=== PATIENT | female | born 2005 | race Caucasian/White ===

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

== ENCOUNTER 2025-06-26 07:01 | Outpatient (CLI) | payer BC, OTHER, SELFPAY ==
[2025-06-26] VITALS (11 sets, daily range): BP systolic 103–109; BP diastolic 64–71; PULSE 79–100; O2SAT 98–99; BMI 27.8
[2025-06-26 07:39] LABS: Hematocrit 31.6 % (37.0-47.0); Hemoglobin 10.4 g/dL (12.0-15.0); Immature Granulocyte Percent A 0.5 % (0-0.5); Lymphocytes Absolute Auto 1.66 K/mm3 (0.9-3.2); Mean Corpuscular HGB Conc 32.9 g/dl (32-36); Mean Corpuscular Hemoglobin 28.0 pg (26-34); Mean Corpuscular Volume 85.2 fl (80-100); Nucleated Red Blood Cells Absolute Auto 0.000 K/mm3 (0.0-0.012); Nucleated Red Blood Cells Perc 0.0 % (0.0-0.2); Platelet Count Result 318 k/mm3 (150-375); Red Blood Count 3.71 M/mm3 (4.2-5.4); White Blood Count 11.1 K/mm3 (4.5-10.0)
[2025-06-26 07:44] LABS: Add Urine Microscopic? YES; Appearance Urine Cloudy (Clear); Glucose Urine UA Negative (Negative); Leukocyte Esterase Ur 2+ LEU/UL (Negative); Nitrate Urine Negative (Negative); Non Pathogenic Casts 0-2; Specific Grav Ur 1.017 (1.001-1.035)
[2025-06-26] MEDS: PANTOPRAZOLE 40 MG TABLET PO (07:58)
[2025-06-26 08:05] LABS: Alanine Aminotransferase 19 U/L (6-35); Albumin Level 3.5 g/dL (3.5-5.1); Alkaline Phosphatase 87 U/L (38-126); Anion Gap 3 mmol/L (4-12); Aspartate Amino Transferase 28 U/L (14-36); Bilirubin,Total 0.3 mg/dL (0.2-1.3); Blood Urea Nitrogen 5 mg/dL (7-17); Calcium 8.6 mg/dL (8.4-10.2); Carbon Dioxide 21 mmol/L (22-30); Chloride 109 mmol/L (98-107); Estimated CRCL calculation 111 ml/min; Estimated Glomerular Filt Rate > 60; Glucose 86 mg/dL (65-110); Potassium 3.7 mmol/L (3.4-5.0); Sodium 133 mmol/L (137-145); Total Protein 6.8 g/dL (6.3-8.2); Uric Acid 5.0 mg/dL (2.5-7.5)
[2025-06-26 08:56] LABS: Total Protein Urine Random 14 mg/dL; Ur Ttl Prot Creatinine Ratio 0.09 mg/mg (0-0.20)
--- NOTE | 2025-06-26 09:10 | PC.NURSE ---
0723- Patient arrived to OB unit with complaints of a burning sensation at the top of her abdomen. Patient states it ab a 5/10 and it worse when moving. Patient states she has taken tums and it has not helped. Patient denies any vaginal bleeding or leaking of fluid. Patient states she has positive movement. Patient's abdomen is soft to palpation. Patient denies any complication this . 0753- CNM on unit reviewing tracing. CNM gave orders, see SEP. 0900- RN notified CNM of lab results and VS. RN also notified CNM that patient states the medication helped, but did not fully resolve. CNM gave orders for d/c and to have patient follow up with Dr. Chin in the office. 0908- RN at bedside discussing plan of care with patient as well as discharge. Patient agrees with plan of care and discharge and has no questions at this time.
== END 2025-06-26 09:10 | disposition home or self-care (01) ==
LOC: ANHOBOP 07:13 → ANHOBPP 07:16
PROVIDERS: PCP Pediatrics; Visit Provider Obstetrics & Gynecology
DX: O13.9 Gestational [pregnancy-induced] hypertension without significant proteinuria, unspecified trimester (principal); Z3A.00 Weeks of gestation of pregnancy not specified
CPT/HCPCS: 36415; 59025; 80053; 81001; 82570; 84156; 84550; 85025; A9270